=== PATIENT | female | born 1965 | race Caucasian/White ===

== ENCOUNTER 2017-03-09 18:52 | Emergency (ER) | payer BC ==
[~2017-03-09] VITALS: Ht 162.6 cm; Wt 54.7 kg
[2017-03-09] MEDS ORDERED: NAPROSYN500 MG PO (21:13)
[2017-03-09] MEDS ORDERED: ZOFRAN4 MG PO (21:13)
[2017-03-09 21:26] VITALS: BP 143/81
== END 2017-03-09 21:27 | disposition home or self-care (01) ==
LOC: EME 18:52
DX: S06.0X0A Concussion without loss of consciousness, initial encounter (principal); S00.83XA Contusion of other part of head, initial encounter; S00.532A Contusion of oral cavity, initial encounter; Y93.H2 Activity, gardening and landscaping; W54.1XXA Struck by dog, initial encounter; Z88.5 Allergy status to narcotic agent; Z88.6 Allergy status to analgesic agent; Z87.891 Personal history of nicotine dependence
CPT/HCPCS: 70450; 99281; 99284

== ENCOUNTER 2017-05-14 11:11 | Emergency (ER) | payer BC ==
[~2017-05-14] VITALS: Ht 162.6 cm; Wt 52.7 kg
[~2017-05-14 11:11] MED LIST: NAPROSYN500 MG PO; ZOFRAN4 MG PO
[2017-05-14 11:57] LABS: HEMATOCRIT 42.3 % (36.0-46.0); HEMOGLOBIN 14.7 G/DL (11.9-15.5); MCH 31.7 PG (29.0-34.0); MCHC 34.8 G/DL (30.0-36.0); MCV 91.2 FL (83-99); PLATELET COUNT 140 K/uL (156-360); RBC DIS.WIDTH-CV 12.2 % (11.8-14.6); RBC DIS.WIDTH-SD 40.7 % (39-53); RED BLOOD COUNT 4.64 M/uL (3.80-5.20)
[2017-05-14 12:08] LABS: CHLORIDE 103 mEq/L (99-109); POTASSIUM 5.1 mEq/L (3.7-5.4); SODIUM 137 mEq/L (136-147)
[2017-05-14 12:09] LABS: GLUCOSE 94 mg/dL (70-99)
[2017-05-14 12:13] LABS: CREATININE 0.9 mg/dL (0.6-1.3); GFR ESTIMATE (CALCULATED) > 59 mL/min/
[2017-05-14 12:13] LABS: APPEARANCE CLOUDY ((CLEAR)); BILIRUBIN NEGATIVE; BLOOD SMALL; COLOR AMBER ((YELLOW)); GLUCOSE (STRIP) NEGATIVE; KETONES 20; LEUKOCYTES NEGATIVE; NITRITE NEGATIVE; PROTEIN (STRIP) 30; SPECIFIC GRAVITY 1.029 (1.000-1.030)
[2017-05-14 12:14] LABS: UREA NITROGEN (BUN) 16 mg/dL (9-23)
[2017-05-14 12:20] LABS: TROP-I INTERPRETATION NEGATIVE; TROPONIN-I 0.02 ng/mL (0.0-0.30)
[2017-05-14 12:24] LABS: BACTERIA NONE SEEN /HPF; CALCIUM OXALATE CRYSTALS 1+ /HPF; EPITHELIAL CELLS 2+ /HPF; HYALINE CASTS 0-5 /LPF; MUCUS 2+ /LPF; RED BLOOD CELLS 0-5 /HPF (0-5); UCUL ADDED? NO; WHITE BLOOD CELLS 0-5 /HPF (0-5)
[2017-05-14] MEDS ORDERED: MOTRIN600 MG PO (12:28)
[2017-05-14 13:02] VITALS: BP 105/80
== END 2017-05-14 13:03 | disposition home or self-care (01) ==
LOC: EME 11:11
PROVIDERS: Physician Assistant
DX: J11.1 Influenza due to unidentified influenza virus with other respiratory manifestations (principal); R07.9 Chest pain, unspecified; F17.200 Nicotine dependence, unspecified, uncomplicated; Z88.5 Allergy status to narcotic agent
CPT/HCPCS: 71046; 80048; 81003; 84484; 85027; 93005; 99281; 99284